=== PATIENT | female | born 1980 | race Caucasian/White ===

== ENCOUNTER 2021-02-07 08:43 | Emergency (ER) | payer BC ==
[~2021-02-07] VITALS: Ht 160 cm; Wt 68.5 kg
[~2021-02-07 08:43] MED LIST: BENTYL10 MG PO; PANTOPRAZOLE SO40 MG PO; ZOFRAN ODT4 MG SL
== END 2021-02-07 10:20 | disposition home or self-care (01) ==
LOC: ER 09:24
DX: L03.115 Cellulitis of right lower limb (principal); I10 Essential (primary) hypertension
CPT/HCPCS: 99283

== ENCOUNTER 2021-06-08 16:14 | Emergency (ER) | payer BC ==
[~2021-06-08] VITALS: Ht 160 cm; Wt 68.5 kg
== END 2021-06-08 17:01 | disposition left against medical advice (07) ==
LOC: ER 17:00
DX: S16.1XXA Strain of muscle, fascia and tendon at neck level, initial encounter (principal); S39.012A Strain of muscle, fascia and tendon of lower back, initial encounter; V43.52XA Car driver injured in collision with other type car in traffic accident, initial encounter; Y92.488 Other paved roadways as the place of occurrence of the external cause; I10 Essential (primary) hypertension